=== PATIENT | male | born 1930 | race Caucasian/White ===

== ENCOUNTER 2018-01-24 07:57 | Outpatient (CLI) | payer MEDICARE, MEDICAID ==
[2018-01-24] MEDS ORDERED: GADOVERSETAMIDE 2.5 MMOL/5 ML VIAL IJ ONE (07:58)
[2018-01-24] MEDS ORDERED: REGADENOSON 0.4 MG/5 ML DISP.SYRIN IVP ONE (08:30)
== END 2018-01-24 23:59 | disposition home or self-care (01) ==
LOC: NM 07:57 → EDSEX 07:57 → NM 23:59
PROVIDERS: ATTEND Internal Medicine Interventional Cardiology
DX: I10 Essential (primary) hypertension (principal); R07.89 Other chest pain; R06.02 Shortness of breath
CPT/HCPCS: 78452; A9502; A9579; J2785